=== PATIENT | male | born 1950 | race Caucasian/White ===

== ENCOUNTER 2024-07-02 14:26 | Emergency (ER) | payer MEDICARE, OTHER, SELFPAY ==
[2024-07-02 14:31] VITALS: BP 131/68
[2024-07-02 14:33] VITALS: BMI 22.9
--- NOTE | 2024-07-02 15:01 | ED.GENMED ---
History of Present Illness
General
Chief Complaint: Bowel Problem
Time Seen by Provider: 07/02/24 15:00
History of Present Illness
History of Present Illness:
TIME OF INITIAL ENCOUNTER: 3:05 PM
HPI: The patient has a history of MS and is essentially nonambulatory. He has had poor bowel movements chronically. He apparently had an abnormal abdominal x-ray in the past for which she was recommended to have increased amount of bowel regimen.
2 days ago, the patient had another x-ray which showed a 'ileus and he is full of stool'.
EXAM:
GENERAL: The patient is chronically ill in appearance and is very weak and debilitated
HEENT: Somewhat dry oral mucosa
ABDOMEN: Soft with no peritoneal signs, no significant tenderness, empty rectal vault
NEUROLOGIC: Poor strength in lower extremities, better strength in the upper extremities, no coordination deficits
PSYCHIATRIC: Appropriate mental status, normal insight and judgement, flat affect
EXTREMITIES: Nontender, no edema, moves all extremities equally
SKIN: No rash, no lesions
NUMBER AND COMPLEXITY OF PROBLEMS ADDRESSED AT THE ENCOUNTER
� Chronic conditions affecting care: MS, CAD, has pacemaker, suprapubic catheter, frequent UTI, hypothyroidism
� Acute Exacerbation and/or Progression of Chronic Illness: This is a subacute problem
� Differential Diagnosis includes: Constipation related to MS, ileus, obstipation, rectal fecal impaction ruled out on physical examination
AMOUNT AND/OR COMPLEXITY OF DATA TO BE REVIEWED AND ANALYZED
� I performed an independent evaluation of and my interpretation is:
EKG:
CT:
X-rays: X-ray personally reviewed and agree with radiologist interpretation of rather severe constipation but no sign of ileus or obstruction
Laboratory Studies:
Other:
� Review of other/old records: The patient was seen in the ED in 2021 related to constipation
� Clinical information was obtained by an independent historian: I spoke to the at bedside
� Prescriptions/Medications Considered but not given:
� Further testing considered but not performed:
RISK OF COMPLICATIONS AND/OR MORBIDITY OR MORTALITY OF PATIENT MANAGEMENT
� Social determinants of health affecting care: Lives at home
� Discussion with other providers:
� Escalation of care including admission/observation vs risk of discharge considered: The patient reportedly had a outpatient x-ray that showed an ileus and that he was 'full of stool'. However digital rectal examination shows
no stool in the rectal vault. There is no rectal fecal impaction on exam. Will repeat x-ray and reassess.
ANY OTHER UPDATES:
6:30 PM: We placed the patient on a commode after soapsuds enema�no significant bowel movement
7 PM: The patient resting comfortably in no distress. Will add lactulose. I have also given the contact information for GI.
Past History
Past History
ED Past Medical History: Arrthythmia, CAD, Hypercholesterolemia, Hypothyroidism and Other (multiple sclerosis, neurogenic bladder, osteoarthritis, cataracts, sepsis, right buttock wound with debridement and wound VAC, Cellulitis, Suprapubic
catheter, UTi)
ED Past Surgical History: Cardiac (Pacemaker), Orthopedic and Other (Cataracts bilaterally, bladder stones)
Social History
Tobacco: Former smoker
Alcohol: None
Drug: None
Personal:
Living: other
Employment: Disabled
Family History
Family History: CAD
Phy Exam
Physical Exam
Physical Exam:
See HPI
Course
Orders/Labs/Results
Orders:
Orders
07/02/24 15:13
CR Obstruct Series W/pa Chest Urgent
Comment:
Reason For Exam: 'ileus and 'large amount stool'; empty rectal vaul
Vital Signs
Initial and Last Documented VS:
Initial Vital Signs
Temp Pulse Resp BP Pulse Ox
97.3 F 78 18 131/68 99
07/02/24 14:31 07/02/24 14:31 07/02/24 14:31 07/02/24 14:31 07/02/24 14:31
Last Documented Vital Signs
Temp Pulse Resp BP Pulse Ox
97.3 F 78 18 131/68 99
07/02/24 14:31 07/02/24 14:31 07/02/24 14:31 07/02/24 14:31 07/02/24 14:31
*Critical Care Note
Total Time (30-74mins, 75-104mins- exclusive of procedures): Not Applicable
ED Attending Note
-
Portions of this chart may have been created with voice recognition software.� Occasional wrong word or��sound alike� substitutions may have occurred due to the inherent limitations of voice recognition software.
Discharge Plan
Departure
Patient Disposition: Home (Routine Discharge)
Date of Disposition: 07/02/24
Time of Disposition: 19:06
Patient with high blood pressure during this ER visit?: Yes
Discharge Problem:
Constipation
Instructions: Constipation, Adult (DC), BLOOD PRESSURE
Prescriptions:
New
lactulose 20 gram/30 mL solution
20 g PO DAILY Qty: 1200 0RF
No Action
baclofen 10 MG tablet
10 tab PO HSPRN PRN (Reason: cramping)
atorvastatin 10 MG tablet
10 mg PO HS
cyanocobalamin (vitamin B-12) 1,000 MCG tablet
1,500 mcg PO HS
ascorbic acid (vitamin C) [Vitamin C] 500 MG tablet
1,000 mg PO HS
levothyroxine 112 MCG tablet
112 mcg PO HS
cholecalciferol (vitamin D3) 1,000 UNITS tablet
1,000 units PO HS
antiox.mv [id number] [I-Caps] 1 EACH capsule
1 ea PO HS
aspirin 81 MG tablet,delayed release (DR/EC)
81 mg PO HS
docusate sodium 100 MG capsule
200 mg PO HSPRN PRN (Reason: constipation)
interferon beta-1a [Avonex] 30 MCG/0.5 ML syringe kit
30 mcg IM TH
Patient Comments:
07/05/2020: Pt's can bring in if needed
polyethylene glycol 3350 17 GRAMS powder in packet
17 grams PO DAILY Qty: 30 0RF
miconazole nitrate [Miconazorb AF] 1 APPLIC powder
1 applic topical BID Qty: 1 0RF
oxybutynin chloride 5 MG tablet
5 mg PO TID Qty: 90 0RF
bisacodyl [OneLAX Bisacodyl] 10 MG suppository
10 mg NC DIRECTED Qty: 14 0RF
Rx Instructions:
take 2 times per week
cefuroxime axetil 500 MG tablet
500 mg PO BID Qty: 10 0RF
Referrals:
Jose Maria Haney, DO [Active] - Follow up in 2-3 days
UNKNOWN - PT DOES,NOT KNOW [Family Provider] -
Activity Restrictions/Additional Instructions:
We tried a soapsuds enema here today. I sent a prescription for lactulose to your pharmacy. Follow-up with GI such as Dr. Haney.
Interventions
Interventions:
*Risk Screen - Suicide Last Done: 07/02/24 14:36
*General Assessment Last Done: 07/02/24 14:36
*Neglect/Abuse Screening Last Done: 07/02/24 14:36
ED- Fall Risk Assessment Last Done: 07/02/24 14:37
*ED COVID-19 Vaccine History Last Done: 07/02/24 14:36
DN-Uldhxb-Tupprisdfx Assessment Last Done: 07/02/24 14:36
Discharge Date and Time
Print Language: MOROCCAN
[2024-07-02 19:23] VITALS: BP 134/78
== END 2024-07-02 21:51 | disposition home or self-care (01) ==
LOC: EMR 14:26
PROVIDERS: EMERGENCY PHYSICIAN Emergency Medicine
DX: K59.00 Constipation, unspecified (principal); R03.0 Elevated blood-pressure reading, without diagnosis of hypertension; G35 Multiple sclerosis; I25.10 Atherosclerotic heart disease of native coronary artery without angina pectoris; Z95.0 Presence of cardiac pacemaker; Z87.891 Personal history of nicotine dependence
CPT/HCPCS: 99283; 74022